=== PATIENT | female | born 1985 ===

== ENCOUNTER 2016-12-04 09:02 | Emergency (ER) | payer OTHER ==
[2016-12-04 09:12] VITALS: BP 106/76; PULSE 76; RESP 19; TEMP 98.8; O2SAT 100
[2016-12-04] MEDS ORDERED: Vancomycin 1 g Inj ONE (09:24)
--- NOTE | 2016-12-04 09:26 | ED PDOC ---
HPI: General Adult Time Seen by Provider: 12/04/16 09:07 Chief Complaint (Provider): right breast swelling History Per: Patient History/Exam Limitations: no limitations Additional Complaint(s): 31yo female comes in complaining of right breast swelling, erythema and pain for 2 weeks. No discharge or fever. Past Medical History Reviewed: Historical Data, Nursing Documentation, Vital Signs Vital Signs: Last Vital Signs Temp 98.8 F 12/04/16 09:10 Pulse 76 12/04/16 09:10 Resp 19 12/04/16 09:10 BP 106/76 12/04/16 09:10 Pulse Ox 100 12/04/16 09:33 - Medical History PMH: No Chronic Diseases - Surgical History Surgical History: No Surg Hx - Family History Family History: States: Unknown Family Hx - Social History Drugs: Denies - Home Medications Home Medications: Ambulatory Orders Medication Instructions Recorded Clindamycin [Cleocin] 300 mg PO TID #30 cap 12/04/16 Naproxen [Naprosyn] 500 mg PO Q12H #20 tab 12/04/16 - Allergies Allergies/Adverse Reactions: Allergies Allergy/AdvReac Type Severity Reaction Status Date / Time No Known Allergies Allergy Verified 12/04/16 10:53 Review of Systems ROS Statement: Except As Marked, All Systems Reviewed And Found Negative Constitutional: Negative for: Fever Skin: Positive for: Other (Breast swelling, erythema) Physical Exam - Reviewed Nursing Documentation Reviewed: Yes Vital Signs Reviewed: Yes - Physical Exam Appears: Positive for: Well, Non-toxic, No Acute Distress Head Exam: Positive for: ATRAUMATIC, NORMAL INSPECTION, NORMOCEPHALIC Cardiovascular/Chest: Positive for: Other (Right breast erythema, lower half swelling inferior portion areaola no drainage, induration lower half of breast. no fluctuance. no axillary lymphadenopathy. ) - Laboratory Results Result Diagrams: 12/04/16 09:52 12/04/16 09:52 - ECG O2 Sat by Pulse Oximetry: 100 (RA) Pulse Ox Interpretation: Normal Medical Decision Making Medical Decision Makin Rule out abscess. US Right breast, VBG shock panel, CBC, CMP, Vancomycin ordered. Blood culture obtained prior to initiation of antibiotics. Disposition - Clinical Impression Clinical Impression: Cellulitis of breast - Patient ED Disposition Is Patient to be Admitted: No Counseled Patient/Family Regarding: Studies Performed, Diagnosis, Need For Followup, Rx Given - Disposition Referrals: [facility] [Outside] Disposition: Routine/Home Disposition Time: 11:58 Condition: FAIR Additional Instructions: Braden Izquierdo en la clinica Prescriptions: Clindamycin [Cleocin] 300 mg PO TID #30 cap Naproxen [Naprosyn] 500 mg PO Q12H #20 tab Instructions: Cellulitis (ED) Print Language: CAMEROONIAN Additional Comments - Additional Comments Additional Comments: Scribe Attestation: Documented by Renny Crouch acting as a scribe for Vikas Dc MD. Provider Scribe Attestation: All medical record entries made by the Scribe were at my direction and personally dictated by me. I have reviewed the chart and agree that the record accurately reflects my personal performance of the history, physical exam, medical decision making, and the department course for this patient. I have also personally directed, reviewed, and agree with the discharge instructions and disposition.
[2016-12-04 09:56] LABS: BASO % 0.4 % (0.0-2.0); EOS # 0.3 K/uL (0.0-0.7); EOS % 2.7 % (0.0-4.0); HEMATOCRIT 35.7 % (34.0-47.0); LYMPH # 1.9 K/uL (1.0-4.3); LYMPH % 17.2 % (20.0-40.0); MEAN CELL VOLUME 89.2 fl (81.0-99.0); MEAN CORPUSCULAR HEMOGLOBIN 29.9 pg (27.0-31.0); MEAN CORPUSCULAR HGB CONC 33.5 g/dL (33.0-37.0); MEAN PLATELET VOLUME 8.7 fl (7.2-11.7); MONO % 8.6 % (0.0-10.0); NEUT # 7.9 K/uL (1.8-7.0); NEUT % 71.1 % (50.0-75.0); RED CELL DISTRIBUTION WIDTH 12.8 % (11.5-14.5); WHITE BLOOD COUNT 11.1 K/uL (4.8-10.8)
[2016-12-04 10:00] LABS: VENOUS BLOOD GAS BASE EXCESS -1.1 mmol/L (0.0-2.0); VENOUS BLOOD GAS PCO2 42 mmHg (40-60); VENOUS BLOOD PH 7.37 (7.32-7.43)
[2016-12-04 10:09] LABS: ALKALINE PHOSPHATASE 108 U/L (38-126); ALT/SGPT 33 U/L (9-52); AST/SGOT 23 U/L (14-36); BILIRUBIN,TOTAL 0.2 mg/dl (0.2-1.3); BLOOD UREA NITROGEN 12 mg/dl (7-17); CALCIUM 9.3 mg/dL (8.4-10.2); CARBON DIOXIDE 21 mmol/L (22-30); CHLORIDE 106 mmol/L (98-107); GFR AFRICAN-AMERICAN > 60; GLUCOSE,RANDOM 99 mg/dL (65-105); SODIUM 143 mmol/l (132-148); TOTAL PROTEIN 8.4 G/DL (6.3-8.2)
[2016-12-04] MEDS ORDERED: Clindamycin 600 MG in Sodium Chloride 0.9% 100 ML IVPB ONE (11:06)
--- NOTE | 2016-12-04 11:36 | US ---
PROCEDURE: Right breast ultrasound examination HISTORY: r/o abscess COMPARISON: Not available TECHNIQUE: Targeted ultrasound examination right breast 3 to 8 o'clock axis FINDINGS: Ultrasound examination performed in the area of erythema and mastodynia demonstrates diffuse subcutaneous edema without evidence of mass or abscess. This most likely indicates cellulitis but is a nonspecific finding and should be correlated with clinical findings. There is no additional abnormality demonstrated. IMPRESSION: No sonographic evidence of abscess. Possible cellulitis.
== END 2016-12-04 13:25 | disposition home or self-care (01) ==
LOC: H.ER 09:02
DX: L03.313 Cellulitis of chest wall (principal); N64.4 Mastodynia

== ENCOUNTER 2016-12-06 15:33 | Inpatient (IN) | payer OTHER ==
[2016-12-06] MEDS ORDERED: DiphenhydrAMINE 50 mg/ml Inj IM STA (16:07)
--- NOTE | 2016-12-06 16:12 | ED PDOC ---
HPI: Allergic Reaction Time Seen by Provider: 12/06/16 15:59 Chief Complaint (Nursing): Allergic Reaction Chief Complaint (Provider): Allergic Reaction History Per: Patient History/Exam Limitations: no limitations Onset/Duration Of Symptoms: Hrs (last night) Current Symptoms Are (Timing): Still Present Context: Other (allergic reaction to medication) Possible Cause: Medication Associated Symptoms: Skin Rash (diffuse, pruritic sensation), Itching. denies: Dyspnea, Trouble Swallowing, Dizziness, Other (fever, chills, or weakness) Home/EMS Treatment: None Severity: Moderate Additional Complaint(s): Nory Lancaster is a 31 year old female, with no pertinent past medical history, who presents to the emergency department for the evaluation of an allergic reaction to a medication, that the patient began experiencing last night. Patient was prescribed Clindamycin on Sunday for cellulitis and was recently seen in this ER, in which she had blood work done, inclusive of a blood culture , which came back negative. Patient reports taking 5 doses of Clindamycin since being Rx, last night she developed a diffuse, pruritic rash. Lesion on right breast remains with pain. Denies difficulty with speaking, swallowing, breathing, weakness, dizziness, fever, chills, or a history of infections to her skin in the past. Patient reports taking no medications for her symptoms prior to arrival and denies a prior history of allergies. Symptoms on breast began approx 14 days ago. PMD: none specified Past Medical History Reviewed: Historical Data, Nursing Documentation, Vital Signs Vital Signs: Last Vital Signs Temp 98.5 F 12/06/16 15:42 Pulse 80 12/06/16 15:42 Resp 18 12/06/16 15:42 BP 105/66 12/06/16 15:42 Pulse Ox 100 12/06/16 15:42 - Medical History PMH: No Chronic Diseases Denies: Chronic Kidney Disease - Surgical History Surgical History: No Surg Hx - Family History Family History: States: No Known Family Hx - Home Medications Home Medications: Ambulatory Orders Medication Instructions Recorded Clindamycin [Cleocin] 300 mg PO TID #30 cap 12/04/16 Naproxen [Naprosyn] 500 mg PO Q12H #20 tab 12/04/16 - Allergies Allergies/Adverse Reactions: Allergies Allergy/AdvReac Type Severity Reaction Status Date / Time No Known Allergies Allergy Verified 12/04/16 10:53 Review of Systems ROS Statement: Except As Marked, All Systems Reviewed And Found Negative Constitutional: Negative for: Fever, Chills ENT: Negative for: Other (difficulty swallowing) Respiratory: Negative for: Shortness of Breath, Other (difficulty speaking) Skin: Positive for: Rash (diffuse, pruritic) Neurological: Negative for: Weakness, Dizziness Physical Exam - Reviewed Nursing Documentation Reviewed: Yes Vital Signs Reviewed: Yes - Physical Exam Appears: Positive for: Non-toxic, No Acute Distress Head Exam: Positive for: ATRAUMATIC, NORMOCEPHALIC Skin: Positive for: Warm, Dry, Rash (diffuse macular rash to back, trunk, and arms; non-petechial and w/o findings to mucous membranes or b/l palms) Eye Exam: Positive for: Normal appearance, EOMI ENT: Positive for: Normal ENT Inspection. Negative for: Pharyngeal Erythema, Tonsillar Exudate Neck: Positive for: Normal, Painless ROM Cardiovascular/Chest: Positive for: Regular Rate, Rhythm, Other (R breast + fluctuance and erythema w induration medial inner breast tracking outwards). Negative for: Murmur Respiratory: Positive for: Normal Breath Sounds. Negative for: Respiratory Distress Gastrointestinal/Abdominal: Positive for: Normal Exam, Soft. Negative for: Tenderness Extremity: Positive for: Normal ROM. Negative for: Tenderness Neurologic/Psych: Positive for: Alert, Oriented. Negative for: Motor/Sensory Deficits - Laboratory Results Result Diagrams: 12/06/16 18:00 12/06/16 18:00 - ECG O2 Sat by Pulse Oximetry: 100 (RA) Pulse Ox Interpretation: Normal Disposition - Clinical Impression Clinical Impression: Cellulitis of breast, Allergic reaction, Leukocytosis - Patient ED Disposition Is Patient to be Admitted: Yes Counseled Patient/Family Regarding: Studies Performed - Disposition Disposition Time: 18:45 Condition: STABLE Patient Signed Over To: Florina Ely Handoff Comments: Obs MS Medical Decision Making Medical Decision Makin:59 Initial Impression: Allergic reaction to medication Initial Plan: * Benadryl 25 mg IM * predniSONE 40 mg PO * Reevaluation allergic reaction improved in ED s/p benadryl and prednisone but cellulitis does not appear to be responding to PO Abx- now elevating WBC, fluctuance on exam, admit Dr Ely hospitalist obtain breast US likely surg consult based on results US. Scribe Attestation: Documented by Renny Montes, acting as a scribe for Mc Zuñiga III, MD. Provider Scribe Attestation: All medical record entries made by the Scribe were at my direction and personally dictated by me. I have reviewed the chart and agree that the record accurately reflects my personal performance of the history, physical exam, medical decision making, and the department course for this patient. I have also personally directed, reviewed, and agree with the discharge instructions and disposition.
[2016-12-06] MEDS ORDERED: DiphenhydrAMINE 50 mg/ml Inj ONE (16:22)
[2016-12-06] MEDS ORDERED: Piperacillin/Tazobact 3.375 GM in Sodium Chloride 0.9% 100 ML IVPB STA (17:47)
[2016-12-06] MEDS ORDERED: Piperacillin/Tazobact 3.375 gm Inj IVPB ONE ×2 (18:02→19:49)
[2016-12-06] MEDS ORDERED: Vancomycin 1 g Inj ONE (18:02)
[2016-12-06 18:13] LABS: BASO % 0.2 % (0.0-2.0); EOS # 0.3 K/uL (0.0-0.7); EOS % 1.9 % (0.0-4.0); HEMATOCRIT 36.1 % (34.0-47.0); LYMPH % 12.6 % (20.0-40.0); MEAN CELL VOLUME 90.4 fl (81.0-99.0); MEAN CORPUSCULAR HEMOGLOBIN 29.1 pg (27.0-31.0); MEAN CORPUSCULAR HGB CONC 32.2 g/dL (33.0-37.0); MEAN PLATELET VOLUME 8.6 fl (7.2-11.7); MONO # 0.7 K/uL (0.0-0.8); MONO % 4.7 % (0.0-10.0); NEUT # 12.7 K/uL (1.8-7.0); NEUT % 80.6 % (50.0-75.0); RED CELL DISTRIBUTION WIDTH 12.7 % (11.5-14.5); WHITE BLOOD COUNT 15.8 K/uL (4.8-10.8)
[2016-12-06 18:45] LABS: BLOOD UREA NITROGEN 17 mg/dl (7-17); CALCIUM 9.3 mg/dL (8.4-10.2); CARBON DIOXIDE 20 mmol/L (22-30); CHLORIDE 107 mmol/L (98-107); GFR AFRICAN-AMERICAN > 60; GLUCOSE,RANDOM 101 mg/dL (65-105); POTASSIUM 3.9 MMOL/L (3.6-5.0); SODIUM 141 mmol/l (132-148)
--- NOTE | 2016-12-06 20:24 | CP.PCM.CON ---
History of Present Illness - History of Present Illness History of Present Illness: General Surgery - Dr. Montoya 31 F w/ no PMH who presented to ED today with a diffuse rash from Clindamycin which she was prescribed 2 days prior for breast cellulitis. Pt states that she noticed some mild pain and swelling of the R breast beginning 2 weeks ago which became progressively worse. She went to the ED on 12/04 and had U/S done which showed only cellulitis, was discharged with PO Clindamycin. Pt states that the pain and swelling has gotten worse over the past 2 days. She denies any Fevers, Chills, SOb/Chest pain, N/V. Pt states she's never had anything like this before. She is not currently or recently . PMH/PSH: Denies Review of Systems - Review of Systems All systems: reviewed and no additional remarkable complaints except (as per HPI ) Past Patient History - Past Social History Smoking Status: Never Smoked - CARDIAC Hx Cardiac Disorders: No - PULMONARY Hx Respiratory Disorders: No - NEUROLOGICAL Hx Neurological Disorder: No - HEENT Hx HEENT Problems: No - RENAL Hx Chronic Kidney Disease: No - ENDOCRINE/METABOLIC Hx Endocrine Disorders: No - HEMATOLOGICAL/ONCOLOGICAL Hx Blood Disorders: No - INTEGUMENTARY Hx Dermatological Problems: No - MUSCULOSKELETAL/RHEUMATOLOGICAL Hx Musculoskeletal Disorders: No - GASTROINTESTINAL Hx Gastrointestinal Disorders: No - GENITOURINARY/GYNECOLOGICAL Hx Genitourinary Disorders: No - PSYCHIATRIC Hx Psychophysiologic Disorder: No Hx Substance Use: No - SURGICAL HISTORY Hx Surgeries: No - ANESTHESIA Hx Anesthesia: No Meds Allergies/Adverse Reactions: Allergies Allergy/AdvReac Type Severity Reaction Status Date / Time No Known Allergies Allergy Verified 12/04/16 10:53 Physical Exam - Constitutional Appears: No Acute Distress - Head Exam Head Exam: ATRAUMATIC, NORMAL INSPECTION, NORMOCEPHALIC - Eye Exam Eye Exam: Normal appearance - ENT Exam ENT Exam: Mucous Membranes Moist - Respiratory Exam Respiratory Exam: NORMAL BREATHING PATTERN. absent: Respiratory Distress - Cardiovascular Exam Cardiovascular Exam: REGULAR RHYTHM - Neurological Exam Neurological exam: Alert, Oriented x3 - Psychiatric Exam Psychiatric exam: Normal Affect, Normal Mood - Skin Skin Exam: Dry, Intact Additional comments: R breast with approx 3x3xcm area of erythema with surrounding induration and central fluctuance located at the 5:00 position Results - Vital Signs Recent Vital Signs: Last Vital Signs Temp 98.5 F 12/06/16 15:42 Pulse 80 12/06/16 15:42 Resp 18 12/06/16 15:42 BP 105/66 12/06/16 15:42 Pulse Ox 100 12/06/16 19:24 - Labs Result Diagrams: 12/06/16 18:00 12/06/16 18:00 Assessment & Plan - Assessment and Plan (Free Text) Assessment: 31 yo F w/ R breast cellulitis/poss. abscess -Repeat U/S of the breast -IV Abx -Pain control -Warm compresses -NPO after midnight for poss. I&D tomorrow DW Dr. Jan Ortega PGY2
--- NOTE | 2016-12-06 21:37 | US ---
EXAM: US Right Breast Limited CLINICAL HISTORY: 31 years old, female; Signs and symptoms; Other: Rt breast cellulitis; Additional info: R breast cellulitis R/O abscess repeat TECHNIQUE: Static sonographic images of the right breast with image documentation utilizing a linear transducer. COMPARISON: Prior report 12/04/2016 FINDINGS: Soft tissues: Amorphous hypoechoic collection with mobile internal debris at 3:00 to 5:00 position, roughly 5.2 x 1.4 cm. Mild peripheral vascularity. Extensive edema within surrounding soft tissues. IMPRESSION: 1. Findings compatible with abscess. Recommend followup following treatment/resolution to exclude underlying pathology. 2. Incidental/non-acute findings are described above.
--- NOTE | 2016-12-06 22:22 | CP.PCM.HP ---
History of Present Illness - History of Present Illness History of Present Illness: Chief complaint: Right breast Cellulitis HPI: Pt is a 31 year old Egyptian speaking female who comes in with no significant pmhx other than a progressive right breast cellulitis which on ultrasound showed no abscess and was treated with clindamycin by mouth with worsening pain/cellulitis and a diffuse rash secondary to the clindamycin. Pt allergic reaction to medication improved but the pain has been getting progressively worse. The white count has been elevated at 15 and she has taken a total of 5 doses of Clindamycin since being. Pt denies any other symptoms or complaints. Symptoms on breast began approx 14 days ago. PMD: none specified Last Vital Signs Temp 98.5 F 12/06/16 15:42 Pulse 80 12/06/16 15:42 Resp 18 12/06/16 15:42 BP 105/66 12/06/16 15:42 Pulse Ox 100 12/06/16 15:42 PMH: No Chronic Diseases Surgical History: No Surg Hx Family History: States: No Known Family Hx Home Medications: Ambulatory Orders Medication Instructions Recorded Clindamycin [Cleocin] 300 mg PO TID #30 cap 12/04/16 Naproxen [Naprosyn] 500 mg PO Q12H #20 tab 12/04/16 Allergies/Adverse Reactions: Allergies Allergy/AdvReac Type Severity Reaction Status Date / Time No Known Allergies Allergy Verified 12/04/16 10:53 ROS- 14 points all negative except for breast pain - ECG O2 Sat by Pulse Oximetry: 100 (RA) Pulse Ox Interpretation: Normal Present on Admission - Present on Admission Any Indicators Present on Admission: No History of DVT/PE: No History of Uncontrolled Diabetes: No Urinary Catheter: No Decubitus Ulcer Present: No Review of Systems - Constitutional Constitutional: absent: As Per HPI, Anorexia, Chills, Daytime Sleepiness, Excessive Sweating, Fatigue, Fever, Frequent Falls, Headache, Increased Appetite , Lethargy, Malaise, Night Sweats, Snoring, Sleep Apnea, Weight Gain, Weight Loss, Weakness, Other - EENT Eyes: absent: As Per HPI, Blind Spots, Blurred Vision, Change in Vision, Decreased Night Vision, Diplopia, Discharge, Dry Eye, Exophthalmos, Floaters, Irritation, Itchy Eyes, Loss of Peripheral Vision, Pain, Photophobia, Requires Corrective Lenses, Sees Flashes, Spots in Vision, Tunnel Vision, Other Visual Disturbances, Loss of Vision, Other Ears: absent: As Per HPI, Decreased Hearing, Ear Discharge, Ear Pain, Tinnitus, Abnormal Hearing, Disequilibrium, Dizziness, Other Nose/Mouth/Throat: absent: As Per HPI, Epistaxis, Nasal Congestion, Nasal Discharge, Nasal Obstruction, Nasal Trauma, Nose Pain, Post Nasal Drip, Sinus Pain, Sinus Pressure, Bleeding Gums, Change in Voice, Dental Pain, Dry Mouth, Dysphagia, Halitosis, Hoarsness, Lip Swelling, Mouth Lesions, Mouth Pain, Odynophagia, Sore Throat, Throat Swelling, Tongue Swelling, Facial Pain, Neck Pain, Neck Mass, Other - Breasts Breasts: Mass, Pain, Nipple Inversion, Swelling - Cardiovascular Cardiovascular: absent: As Per HPI, Acrocyanosis, Chest Pain, Chest Pain at Rest , Chest Pain with Activity, Claudication, Diaphoresis, Dyspnea, Dyspnea on Exertion, Edema, Irregular Heart Rhythm, Pain Radiating to Arm/Neck/Jaw, Leg Edema, Leg Ulcers, Lightheadedness, Orthopnea, Palpitations, Paroxysmal Nocturnal Dyspnea, Pedal Edema, Radiating Pain, Rapid Heart Rate, Slow Heart Rate, Syncope, Other - Respiratory Respiratory: absent: As Per HPI, Cough, Dyspnea, Hemoptysis, Dyspnea on Exertion , Wheezing, Snoring, Stridor, Pain on Inspiration, Chest Congestion, Excessive Mucous Production, Change in Mucous Color, Pain with Coughing, Other - Gastrointestinal Gastrointestinal: absent: As Per HPI, Abdominal Pain, Belching, Bloating, Change in Bowel Habits, Change in Stool Character, Coffee Ground Emesis, Constipation, Cramping, Diarrhea, Dyspepsia, Dysphagia, Early Satiety, Excessive Flatus, Fecal Incontinence, Heartburn, Hematemesis, Hematochezia, Loose Stools, Melena, Nausea, Odynophagia, Temesmus, Vomiting, Other - Genitourinary Genitourinary: absent: As Per HPI, Change in Urinary Stream, Difficulty Urinating, Dysuria, Flank Pain, Hematuria, Pyuria, Nocturia, Urinary Incontinence, Urinary Frequency, Urinary Hesitance, Urinary Urgency, Voiding Freq/Small Amts, Freq UTI, Hx Renal/Bladder Calculi, Hx /Renal Surgery, Bladder Distension, Other - Menstruation Menstruation: absent: As Per HPI, Amenorrhea, Amenorrhea/ Control, Currently Menstual, Cycle <21 Days, Cycle >35 Days, Cycle Variable, Menses 1-7 Days, Menses >/= 8 Days, Menses Variable, Cycle > 4 Weeks Between, No Menses for 6 Months, Heavy Menses, Light Menses, Normal Menses, Spotting Between Cycles , S/P Hysterectomy, Menopausal, Post Menopausal, Premenarche, Abnormal Vaginal Bleeding, Dysmenorrhea, Other - Musculoskeletal Musculoskeletal: absent: As Per HPI, Abnormal Gait, Arthralgias, Atrophy, Back Pain, Deformity, Joint Swelling, Limited Range of Motion, Loss of Height, Muscle Cramps, Muscle Weakness, Myalgias, Neck Pain, Numbness, Radiating Pain into Limb, Stiffness, Tingling, Other - Integumentary Integumentary: Skin Pain, Swelling - Neurological Neurological: absent: As Per HPI, Abnormal Gait, Abnormal Hearing, Abnormal Movements, Abnormal Speech, Behavioral Changes, Burning Sensations, Confusion, Convulsions, Disequilibrium, Dizziness, Numbness, Focal Weakness, Frequent Falls , Headaches, Lack of Coordination, Loss of Vision, Memory Loss, Paresthesias, Radicular Pain, Restless Legs, Sensory Deficit, Syncope, Tingling, Tremor, Vertigo, Weakness, Other Visual Disturbances, Other - Psychiatric Psychiatric: absent: As Per HPI, Abnormal Sleep Pattern, Anhedonia, Anxiety, Auditory Hallucinations, Behavioral Changes, Change in Appetite, Change in Libido, Confusion, Depression, Difficulty Concentrating, Hallucinations, Homicidal Ideation, Hopelessness, Irritability, Memory Loss, Mood Swings, Panic Attacks, Paranoia, Suicidal Ideation, Visual Hallucinations, Tactile Hallucinations, Other - Endocrine Endocrine: absent: As Per HPI, Change in Body Appearance, Change in Libido, Cold Intolorance, Deepening of Voice, Excessive Sweating, Fatigue, Flushing, Heat Intolorance, Increase in Ring/Shoe/Hat Size, Palpitations, Polydipsia, Polyphagia, Polyuria, Other - Hematologic/Lymphatic Hematologic: absent: As Per HPI, Easy Bleeding, Easy Bruising, Lymphadenopathy, Other Past Patient History - Tetanus Immunizations Tetanus Immunization: Unknown - Past Medical History & Family History Past Medical History?: No - Past Social History Smoking Status: Never Smoked Chewing Tobacco Use: No Cigar Use: No - CARDIAC Hx Cardiac Disorders: No - PULMONARY Hx Respiratory Disorders: No - NEUROLOGICAL Hx Neurological Disorder: No - HEENT Hx HEENT Problems: No - RENAL Hx Chronic Kidney Disease: No - ENDOCRINE/METABOLIC Hx Endocrine Disorders: No - HEMATOLOGICAL/ONCOLOGICAL Hx Blood Disorders: No - INTEGUMENTARY Hx Dermatological Problems: No - MUSCULOSKELETAL/RHEUMATOLOGICAL Hx Musculoskeletal Disorders: No - GASTROINTESTINAL Hx Gastrointestinal Disorders: No - GENITOURINARY/GYNECOLOGICAL Hx Genitourinary Disorders: No - PSYCHIATRIC Hx Psychophysiologic Disorder: No Hx Substance Use: No - SURGICAL HISTORY Hx Surgeries: No - ANESTHESIA Hx Anesthesia: No Meds Allergies/Adverse Reactions: Allergies Allergy/AdvReac Type Severity Reaction Status Date / Time No Known Allergies Allergy Verified 12/04/16 10:53 Physical Exam - Head Exam Head Exam: ATRAUMATIC, NORMAL INSPECTION, NORMOCEPHALIC - Eye Exam Eye Exam: EOMI, Normal appearance, PERRL Pupil Exam: NORMAL ACCOMODATION - ENT Exam ENT Exam: Mucous Membranes Moist, Normal Exam - Neck Exam Neck exam: Positive for: Normal Inspection - Respiratory Exam Respiratory Exam: Clear to Auscultation Bilateral, NORMAL BREATHING PATTERN - Cardiovascular Exam Cardiovascular Exam: REGULAR RHYTHM - GI/Abdominal Exam GI & Abdominal Exam: Normal Bowel Sounds - Back Exam Back exam: NORMAL INSPECTION - Neurological Exam Neurological exam: CN II-XII Intact, Normal Gait, Oriented x3, Reflexes Normal - Psychiatric Exam Psychiatric exam: Normal Mood - Additional Findings Additional findings: breast looks indurated with swelling and painful to the touch. Results - Vital Signs Recent Vital Signs: Last Vital Signs Temp 97.8 F 12/06/16 22:15 Pulse 78 12/06/16 22:15 Resp 18 12/06/16 22:15 BP 118/65 12/06/16 22:15 Pulse Ox 100 12/06/16 22:15 - Labs Result Diagrams: 12/06/16 18:00 05/10/17 18:00 Assessment & Plan - Assessment and Plan (Free Text) Assessment: Pt is a 31 yo irish speaking female with breast cellulitis with no improvement in symptoms. Plan: Admit to Med surg 1) breast cellulitis- no abscess on prior ultrasound - will get vanco and rocephin for now iv - tylenol for breast pain - Surgery consult appreciated with Dr. Montoya - cultures pending - repeat ultrasound pending 2) gi and dvt prophylaxis - Date & Time Date: 12/06/16 Time: 22:31
[2016-12-06] MEDS ORDERED: Oxycodone/Acetaminophen 5/325 mg Tab PO PRN (22:36)
[2016-12-06] MEDS: Sodium Chloride 0.9% 1,000 ML IV SCH (23:11)
[2016-12-07 00:03] VITALS: BMI 19.5
[2016-12-07 06:59] LABS: BASO % 0.2 % (0.0-2.0); EOS % 0.3 % (0.0-4.0); HEMATOCRIT 32.5 % (34.0-47.0); LYMPH # 2.2 K/uL (1.0-4.3); LYMPH % 18.1 % (20.0-40.0); MEAN CELL VOLUME 89.7 fl (81.0-99.0); MEAN CORPUSCULAR HEMOGLOBIN 29.5 pg (27.0-31.0); MEAN CORPUSCULAR HGB CONC 32.9 g/dL (33.0-37.0); MEAN PLATELET VOLUME 8.8 fl (7.2-11.7); MONO # 0.9 K/uL (0.0-0.8); MONO % 7.7 % (0.0-10.0); NEUT # 8.8 K/uL (1.8-7.0); NEUT % 73.7 % (50.0-75.0); RED CELL DISTRIBUTION WIDTH 12.7 % (11.5-14.5); WHITE BLOOD COUNT 11.9 K/uL (4.8-10.8)
[2016-12-07 07:11] LABS: BLOOD UREA NITROGEN 14 mg/dl (7-17); CALCIUM 8.6 mg/dL (8.4-10.2); CARBON DIOXIDE 21 mmol/L (22-30); CHLORIDE 111 mmol/L (98-107); GFR AFRICAN-AMERICAN > 60; GLUCOSE,RANDOM 101 mg/dL (65-105); POTASSIUM 3.8 MMOL/L (3.6-5.0); SODIUM 142 mmol/l (132-148)
[2016-12-07] MEDS ORDERED: Enoxaparin 40 mg Syringe SC SCH (09:00)
[2016-12-07] MEDS: Sodium Chloride 0.9% 1,000 ML IV SCH ×2 (10:24→20:40)
--- NOTE | 2016-12-07 14:53 | CP.PCM.PN ---
Subjective - Date & Time of Evaluation Date of Evaluation: 12/07/16 Time of Evaluation: 11:20 - Subjective Subjective: Pt seen and examined. Pain on right breast tolerable. Objective - Vital Signs/Intake and Output Vital Signs (last 24 hours): Temp Pulse Resp BP Pulse Ox 98.8 F 80 18 90/59 L 98 12/07/16 09:00 12/07/16 09:00 12/07/16 09:00 12/07/16 09:00 12/07/16 09:00 - Medications Medications: Current Medications Acetaminophen (Tylenol 325mg Tab) 650 mg PO Q6 PRN PRN Reason: Pain, Mild (1-3) Ceftriaxone Sodium 1 gm/ (Sodium Chloride) 100 mls @ 100 mls/hr IVPB BID [facility] Last Admin: 12/07/16 10:19 Dose: 100 mls/hr Vancomycin HCl 1 gm/ Sodium (Chloride) 250 mls @ 166.667 mls/hr IVPB DAILY [facility] Last Admin: 12/07/16 10:20 Dose: 166.667 mls/hr Sodium Chloride (Sodium Chloride 0.9%) 1,000 mls @ 100 mls/hr IV .Q10H [facility] Stop: 12/07/16 22:47 Last Admin: 12/07/16 10:24 Dose: 100 mls/hr Oxycodone/Acetaminophen (Percocet 5/325 Mg Tab) 1 tab PO Q6 PRN PRN Reason: Pain, severe (8-10) Stop: 12/09/16 22:37 - Labs Labs: 12/07/16 06:15 12/07/16 06:15 - Constitutional Appears: No Acute Distress - Head Exam Head Exam: ATRAUMATIC - Eye Exam Eye Exam: absent: Scleral icterus - ENT Exam ENT Exam: Mucous Membranes Moist - Neck Exam Neck Exam: absent: Meningismus - Respiratory Exam Respiratory Exam: absent: Rhonchi, Wheezes, Respiratory Distress - Cardiovascular Exam Cardiovascular Exam: REGULAR RHYTHM, +S1, +S2 - GI/Abdominal Exam GI & Abdominal Exam: Soft. absent: Tenderness - Rectal Exam Rectal Exam: Deferred - Extremities Exam Extremities Exam: absent: Pedal Edema - Back Exam Back Exam: NORMAL INSPECTION - Neurological Exam Neurological Exam: Alert, Oriented x3 - Psychiatric Exam Psychiatric exam: Normal Affect - Skin Skin Exam: Erythema (swelling with erythema and tenderness on right breast, lower outer quadrant) Assessment and Plan (1) Cellulitis of breast Status: Acute - Assessment and Plan (Free Text) Assessment: 31 yo female came in with pain and swelling on the right breast. 1. Cellulitis, right breast improving with pain becoming more tolerable on Vanco and Rocephin for I&D today blood culture: no growth 2. DVT prophylaxis Lovenox on hold since pt is for I&D today.
[2016-12-07] MEDS ORDERED: Midazolam 2 MG/2 ML VIAL ONE (18:13)
[2016-12-07] MEDS ORDERED: Propofol 10 mg/ml Inj (20 ML) ONE (18:13)
[2016-12-07] MEDS ORDERED: Sevoflurane - Inhalation Anesthetic Liq (250 ml) ONE (18:19)
[2016-12-07] MEDS ORDERED: Lactated Ringer's 1,000 ML IV ONE (18:30)
[2016-12-07] MEDS ORDERED: HYDROmorphone 0.5 mg/0.5 ml ISec IVP PRN (18:48)
--- NOTE | 2016-12-07 18:50 | PCM.SURG1 ---
Surgeon's Initial Post Op Note - Surgeon's Notes Surgeon: Dr. Montoya Family Support Worker: Dr. Weiss PGY-1 Type of Anesthesia: General LMA Pre-Operative Diagnosis: Right breast abscess Operative Findings: See operative note Post-Operative Diagnosis: Right breast abscess Operation Performed: Inscision and drainage of Right breast abscess Specimen/Specimens Removed: Purulent exhudate Estimated Blood Loss: EBL {In ML}: 10 Blood Products Given: N/A Drains Used: No Drains Post-Op Condition: Good Date of Surgery/Procedure: 12/07/16 Time of Surgery/Procedure: 18:50
[2016-12-07 23:45] VITALS: RESP 16
[2016-12-08 07:50] VITALS: BP 103/69; PULSE 73; TEMP 97.6; O2SAT 100
--- NOTE | 2016-12-08 08:03 | CP.PCM.PN ---
Subjective - Date & Time of Evaluation Date of Evaluation: 12/08/16 Time of Evaluation: 08:00 - Subjective Subjective: General Surgery - Dr. Montoya Pt S&E. NAEO. Pt doing well post-op. She denies any pain at this time. She is tolerating regular diet and ambulating. R breast dressing w/ slight serosanguinous drainage, dry and intact. Objective - Vital Signs/Intake and Output Vital Signs (last 24 hours): Temp Pulse Resp BP Pulse Ox 97.6 F 73 16 103/69 100 12/08/16 07:49 12/08/16 07:49 12/08/16 07:49 12/08/16 07:49 12/08/16 07:49 Intake and Output: 12/08/16 12/08/16 06:59 18:59 Intake Total 100 Balance 100 - Medications Medications: Current Medications Acetaminophen (Tylenol 325mg Tab) 650 mg PO Q6 PRN PRN Reason: Pain, Mild (1-3) Ceftriaxone Sodium 1 gm/ (Sodium Chloride) 100 mls @ 100 mls/hr IVPB BID [facility] Last Admin: 12/07/16 16:02 Dose: 100 mls/hr Vancomycin HCl 1 gm/ Sodium (Chloride) 250 mls @ 166.667 mls/hr IVPB DAILY [facility] Last Admin: 12/07/16 10:20 Dose: 166.667 mls/hr Oxycodone/Acetaminophen (Percocet 5/325 Mg Tab) 1 tab PO Q6 PRN PRN Reason: Pain, severe (8-10) Stop: 12/09/16 22:37 - Constitutional Appears: No Acute Distress - Head Exam Head Exam: ATRAUMATIC, NORMOCEPHALIC - Respiratory Exam Respiratory Exam: NORMAL BREATHING PATTERN. absent: Respiratory Distress - Cardiovascular Exam Cardiovascular Exam: REGULAR RHYTHM - Neurological Exam Neurological Exam: Alert, Oriented x3 - Psychiatric Exam Psychiatric exam: Normal Affect, Normal Mood - Skin Skin Exam: Dry, Intact Additional comments: R Breast dressing dry and intact Assessment and Plan - Assessment and Plan (Free Text) Assessment: 31 yo F w/ R breast abscess, s/p I&D POD #1 -Doing well post-operatively -Cont IV Abx -F/U Cultures -Encourage OOB -Packing change prior to D/C DW Dr Jan Alvarezald PGY2
--- NOTE | 2016-12-08 10:38 | OP ---
PROCEDURE DATE: 12/07/2016 SURGEON: Dr. Montoya. POT FISHER: Dr. Weiss. ANESTHESIA: General, Dr. Gordon. PREOPERATIVE DIAGNOSIS: Abscess, right breast. POSTOPERATIVE DIAGNOSIS: Abscess, right breast. PROCEDURE: Incision and drainage of right breast abscess. DESCRIPTION OF OPERATION: With the patient in the supine position under adequate general anesthesia, the right breast was prepped and draped in the usual sterile manner. The patient was noted to have erythema and swelling near the upper inner areolar border of the right breast. An incision was made into this area. Upon incising through the full thickness of skin there was noted to be drainage of t he large amount of white pus and cultures were taken. There were minimal loculations broken up with primarily a large single cavity and pus was expressed from both the subareolar and upper inner portio n of the breast with gentle pressure. The cavity was irrigated and plain gauze packing was placed fo llowed by a dry sterile dressing. The patient tolerated the procedure well and transferred to [facility] room in stable condition. Estimated blood loss for the procedure was 10 mL. Racquel Montoya MD cc: 58 TT: 12/08/2016 10:38:14 sonia
--- NOTE | 2016-12-08 12:53 | CP.PCM.DIS ---
Provider - Provider Date of Admission: 12/07/16 15:37 Attending physician: Florina Ely MD Consults: Dr Montoya Time Spent in preparation of Discharge (in minutes): 30 Diagnosis - Discharge Diagnosis (1) Cellulitis of breast Status: Acute Comment: improved. pain on right breast almost non-existent and very tolerable. Bactrim DS PO BID x 7 days. to follow with Dr Montoya in her office on 12/11/2016 Hospital Course - Lab Results Lab Results: Most Recent Lab Values WBC 11.9 K/uL (4.8-10.8) H 12/07/16 06:15 RBC 3.63 Mil/uL (3.80-5.20) L 12/07/16 06:15 Hgb 10.7 g/dL (12.0-16.0) L 12/07/16 06:15 Hct 32.5 % (34.0-47.0) L 12/07/16 06:15 MCV 89.7 fl (81.0-99.0) 12/07/16 06:15 MCH 29.5 pg (27.0-31.0) 12/07/16 06:15 MCHC 32.9 g/dL (33.0-37.0) L 12/07/16 06:15 RDW 12.7 % (11.5-14.5) 12/07/16 06:15 Plt Count 314 K/uL (130-400) 12/07/16 06:15 MPV 8.8 fl (7.2-11.7) 12/07/16 06:15 Neut % (Auto) 73.7 % (50.0-75.0) 12/07/16 06:15 Lymph % (Auto) 18.1 % (20.0-40.0) L 12/07/16 06:15 Morrow % (Auto) 7.7 % (0.0-10.0) 12/07/16 06:15 Eos % (Auto) 0.3 % (0.0-4.0) 12/07/16 06:15 Baso % (Auto) 0.2 % (0.0-2.0) 12/07/16 06:15 Neut # 8.8 K/uL (1.8-7.0) H 12/07/16 06:15 Lymph # 2.2 K/uL (1.0-4.3) 12/07/16 06:15 Morrow # 0.9 K/uL (0.0-0.8) H 12/07/16 06:15 Eos # 0.0 K/uL (0.0-0.7) 12/07/16 06:15 Baso # 0.0 K/uL (0.0-0.2) 12/07/16 06:15 Sodium 142 mmol/l (132-148) 12/07/16 06:15 Potassium 3.8 MMOL/L (3.6-5.0) 12/07/16 06:15 Chloride 111 mmol/L (98-107) H 12/07/16 06:15 Carbon Dioxide 21 mmol/L (22-30) L 12/07/16 06:15 Anion Gap 14 (10-20) 12/07/16 06:15 BUN 14 mg/dl (7-17) 12/07/16 06:15 Creatinine 0.5 mg/dL (0.7-1.2) L 12/07/16 06:15 Est GFR ( Amer) > 60 12/07/16 06:15 Est GFR (Non-Af Amer) > 60 12/07/16 06:15 Random Glucose 101 mg/dL (65-105) 12/07/16 06:15 Calcium 8.6 mg/dL (8.4-10.2) 12/07/16 06:15 - Hospital Course Hospital Course: 31 yo female with no significant PMH admitted because of painful swelling on the right breast. Patient was given Clindamycin but had to be stopped because of allergic reaction. The patient was started on IV Vanco and Rocephin then followed with I&D. The patient admitted marked relief and improvement post surgery. Pt was discharged in stable condition and advised to take Bactrim DS BID for 7 days. Pt will follow with Dr Montoya in her office this Sunday, 2016. Discharge Exam - Head Exam Head Exam: ATRAUMATIC, NORMOCEPHALIC - Eye Exam Eye Exam: Normal appearance - ENT Exam ENT Exam: Mucous Membranes Moist - Respiratory Exam Respiratory Exam: NORMAL BREATHING PATTERN. absent: Wheezes, Respiratory Distress - Cardiovascular Exam Cardiovascular Exam: REGULAR RHYTHM, +S1, +S2 - GI/Abdominal Exam GI & Abdominal Exam: Soft, Tenderness - Rectal Exam Rectal Exam: Deferred - Neurological Exam Neurological exam: Alert, Oriented x3 - Psychiatric Exam Psychiatric exam: Normal Affect - Skin Additional comments: dressing clear, dry and intact on right breast Discharge Plan - Discharge Medications Prescriptions: Sulfamethoxazole/Trimethoprim [Bactrim Ds Tablet] 1 each PO BID #14 tablet - Follow Up Plan Condition: STABLE Disposition: HOME/ ROUTINE Instructions: Cellulitis (DC) Additional Instructions: Please follow-up with Dr. Montoya on Sunday. Please call for appointment [phone]
== END 2016-12-08 15:05 | disposition home or self-care (01) | DRG 276 ==
LOC: H.ER 15:33 → H.ERHOLD 19:16 → H.MEDSURG1 21:01 → H.ERHOLD 21:39 → H.MEDSURG1 22:27 → OBSVTOIN 12-07 15:37 → H.MEDSURG1 12-07 18:17
PROVIDERS: ADMIT Hospitalist; ATTEND Hospitalist
PROC: 0H9T0ZZ Drainage of Right Breast, Open Approach (ICD-10-PCS; principal; 2016-12-07 16:15)
DX: N61.0 Mastitis without abscess (principal); D72.829 Elevated white blood cell count, unspecified

== ENCOUNTER 2016-12-11 13:14 | Emergency (ER) | payer OTHER ==
[2016-12-11 13:14] VITALS: BMI 19.5
[2016-12-11 13:29] VITALS: BP 120/71; PULSE 81; RESP 20; TEMP 98.8; O2SAT 100
--- NOTE | 2016-12-11 14:35 | ED PDOC ---
HPI: Wound Care - HPI Time Seen by Provider: 12/11/16 14:25 Chief Complaint (Nursing): Wound Check Chief Complaint (Provider): Wound Check History Per: Patient Exam Limitations: no limitations Onset/Duration Of Symptoms: Days (4x) Current Symptoms Are (Timing): Still Present Severity: Mild Additional Complaint(s): 31 year old female with no pertinent medical history presents to the ED for a wound check. She reports that she had an abscess on her right breast and 4x days ago she ad it I and D-ed by Dr. Montoya. She was supposed to follow up with him today but was unable to make appointment which is what prompted her visit to the ED today. She reports that she is being compliant her antibiotics and feels better. She denies having a fever or chills. PMD: Racquel Montoya MD Past Medical History Reviewed: Historical Data, Nursing Documentation, Vital Signs Vital Signs: Last Vital Signs Temp 98.8 F 12/11/16 13:26 Pulse 81 12/11/16 13:26 Resp 20 12/11/16 13:26 BP 120/71 12/11/16 13:26 Pulse Ox 100 12/11/16 13:26 - Medical History PMH: No Chronic Diseases Denies: HIV, Chronic Kidney Disease - Surgical History Surgical History: No Surg Hx - Family History Family History: States: Unknown Family Hx - Social History Alcohol: None Drugs: Denies - Home Medications Home Medications: Ambulatory Orders Medication Instructions Recorded Acetaminophen [Tylenol 325mg tab] 650 mg PO Q4 PRN tab 12/08/16 Sulfamethoxazole/Trimethoprim 1 each PO BID #14 tablet 12/08/16 [Bactrim Ds Tablet] - Allergies Allergies/Adverse Reactions: Allergies Allergy/AdvReac Type Severity Reaction Status Date / Time clindamycin Allergy RASH Verified 12/11/16 13:25 Review of Systems ROS Statement: Except As Marked, All Systems Reviewed And Found Negative Constitutional: Negative for: Fever, Chills Physical Exam - Reviewed Nursing Documentation Reviewed: Yes Vital Signs Reviewed: Yes - Physical Exam Appears: Positive for: Well, Non-toxic, No Acute Distress Head Exam: Positive for: ATRAUMATIC, NORMOCEPHALIC Skin: Positive for: Normal Color, Warm, Dry (right breast: packed, no erythema) Cardiovascular/Chest: Positive for: Regular Rate, Rhythm Respiratory: Positive for: Normal Breath Sounds. Negative for: Respiratory Distress Neurologic/Psych: Positive for: Alert, Oriented (3x) - ECG O2 Sat by Pulse Oximetry: 100 (RA) Pulse Ox Interpretation: Normal Medical Decision Making Medical Decision Makin:25 Initial impression: 31 year old female status post incision and drainage wound check. Plan: Discussed case with Dr. Montoya who is asking for the patient to go to her office right after d/c from ED (office located [address] [place] [address]). 14:40 Patient is in fair condition and will be discharged with instructions to follow up with Dr. Montoya upon discharge from ED. There is agreement to discharge plan. Scribe Attestation: Documented by Chapis Covington, acting as a scribe for Harley Rivas PA-C. Provider Scribe Attestation: All medical record entries made by the Scribe were at my direction and personally dictated by me. I have reviewed the chart and agree that the record accurately reflects my personal performance of the history, physical exam, medical decision making, and the department course for this patient. I have also personally directed, reviewed, and agree with the discharge instructions and disposition. Disposition - Clinical Impression Clinical Impression: Encounter for wound re-check - Disposition Referrals: Racquel Montoya MD [Staff Provider] - Disposition Time: 14:40 Condition: FAIR Instructions: Breast Abscess Drainage (DC) Print Language: KAZAKH
== END 2016-12-11 14:49 | disposition home or self-care (01) ==
LOC: H.ER 13:14
DX: Z48.00 Encounter for change or removal of nonsurgical wound dressing (principal)

== ENCOUNTER 2018-02-01 11:21 | Emergency (ER) | payer OTHER, SELFPAY ==
[2018-02-01 11:21] VITALS: BMI 19.5
[2018-02-01 11:41] VITALS: TEMP 99; O2SAT 100
[2018-02-01] MEDS ORDERED: Sodium Chloride 0.9% 1,000 ML IV STA (12:04)
[2018-02-01 12:21] LABS: BASO % 0.4 % (0.0-2.0); EOS # 0.2 K/uL (0.0-0.7); EOS % 6.4 % (0.0-4.0); HEMOGLOBIN 11.4 g/dL (12.0-16.0); LYMPH # 1.4 K/uL (1.0-4.3); LYMPH % 35.8 % (20.0-40.0); MEAN CELL VOLUME 89.7 fl (81.0-99.0); MEAN CORPUSCULAR HEMOGLOBIN 29.5 pg (27.0-31.0); MEAN CORPUSCULAR HGB CONC 32.9 g/dL (33.0-37.0); MEAN PLATELET VOLUME 9.3 fl (7.2-11.7); MONO # 0.5 K/uL (0.0-0.8); MONO % 11.9 % (0.0-10.0); NEUT # 1.8 K/uL (1.8-7.0); NEUT % 45.5 % (50.0-75.0); RBC 3.88 Mil/uL (3.80-5.20); RED CELL DISTRIBUTION WIDTH 13.5 % (11.5-14.5); WHITE BLOOD COUNT 3.9 K/uL (4.8-10.8)
--- NOTE | 2018-02-01 12:21 | ED PDOC ---
HPI: General Adult Time Seen by Provider: 02/01/18 11:48 Chief Complaint (Nursing): Headache Chief Complaint (Provider): headache, dizzy, rash History Per: Patient, Recycling Coordinator (Debbie) History/Exam Limitations: no limitations Current Symptoms Are (Timing): Still Present Additional Complaint(s): 32yo female c/o headache and dizziness ongoing about 5 days, associated w fatigue, now today develped diffuse rash to entire body, non-pruritic, non petechial, non urticarial, no prior history of similar. Denies neck pain, photophobia or sore throat. Denies abdominal pain. +nausea but no vomiting or diarrhea. LMP current. Taking meclizine left over from approx 2 years ago when she had episode of dizziness. Past Medical History Reviewed: Historical Data, Nursing Documentation, Vital Signs Vital Signs: Last Vital Signs Temp 99 F 02/01/18 11:37 Pulse 75 02/01/18 17:32 Resp 16 02/01/18 17:32 BP 125/80 02/01/18 17:32 Pulse Ox 100 02/01/18 17:32 - Medical History PMH: No Chronic Diseases Denies: HIV, Chronic Kidney Disease - Surgical History Surgical History: No Surg Hx - Family History Family History: States: Unknown Family Hx - Social History Current smoker - smoking cessation education provided: No - Home Medications Home Medications: Ambulatory Orders Medication Instructions Recorded Ciprofloxacin [Cipro] 500 mg PO Q12H 10 Days #20 tab 06/06/17 Naproxen [Naprosyn] 500 mg PO BID PRN #14 tablet 02/01/18 - Allergies Allergies/Adverse Reactions: Allergies Allergy/AdvReac Type Severity Reaction Status Date / Time clindamycin Allergy RASH Verified 02/01/18 11:35 Review of Systems ROS Statement: Except As Marked, All Systems Reviewed And Found Negative Constitutional: Negative for: Fever ENT: Negative for: Ear Pain, Nose Discharge, Throat Pain Cardiovascular: Negative for: Chest Pain, Palpitations Respiratory: Negative for: Cough, Shortness of Breath Gastrointestinal: Positive for: Nausea. Negative for: Vomiting, Diarrhea Genitourinary Female: Negative for: Dysuria Musculoskeletal: Negative for: Neck Pain Skin: Positive for: Rash. Negative for: Lesions, Jaundice, Bruising Neurological: Positive for: Headache, Dizziness. Negative for: Weakness Psych: Negative for: Depression Physical Exam - Reviewed Nursing Documentation Reviewed: Yes Vital Signs Reviewed: Yes - Physical Exam Appears: Positive for: Well, Non-toxic, No Acute Distress Head Exam: Positive for: ATRAUMATIC, NORMAL INSPECTION, NORMOCEPHALIC Skin: Positive for: Warm, Rash (diffuse lacy erythematous early morbilliform rash to extremities and trunk, spares face, no palms or soles, nontender, no induration) Eye Exam: Positive for: EOMI, Normal appearance, PERRL ENT: Positive for: Normal ENT Inspection Neck: Positive for: Normal, Painless ROM Cardiovascular/Chest: Positive for: Regular Rate, Rhythm Respiratory: Positive for: CNT, Normal Breath Sounds Gastrointestinal/Abdominal: Positive for: Soft. Negative for: Tenderness, Guarding Back: Positive for: Normal Inspection, Other (rash as above) Extremity: Positive for: Normal ROM, Other (rash as above). Negative for: Tenderness, Deformity Neurologic/Psych: Positive for: Alert, Oriented. Negative for: Motor/Sensory Deficits - Laboratory Results Result Diagrams: 02/01/18 12:13 02/01/18 12:13 - ECG O2 Sat by Pulse Oximetry: 100 Medical Decision Making Medical Decision Making: workup for headache with rash initiated bloodwork, CT, r/o strep, other bacterial infectious etiologies toradol ordered and IVF ordered labs reviewed mild leukopenia unclear etiology of symptoms now rash serology for lyme and mono sent, RPR, d/w resident tawanna and arranged for followup w clinic on sunday for results Rx naprosyn indications for return discussed in amharic Disposition - Clinical Impression Clinical Impression: Rash, Headache Counseled Patient/Family Regarding: Studies Performed, Diagnosis, Need For Followup, Rx Given - Disposition Referrals: [facility] [Outside] Disposition Time: 16:45 Condition: STABLE Additional Instructions: Followup with clinic for results of other blood tests in 2-3 days. Return to ER for any fever, weakness, new or worsening symptoms. Take medication as needed and directed for symptoms. Prescriptions: Naproxen [Naprosyn] 500 mg PO BID PRN #14 tablet PRN Reason: Pain, Moderate (4-7) Instructions: Headache, Adult, Skin Rash (DC) Forms: [employer] (Hungarian) Print Language: POLISH
[2018-02-01 12:26] LABS: SQUAMOUS EPITHIAL 3 /hpf (0-5); URINE BILIRUBIN NEGATIVE (NEGATIVE); URINE BLOOD MODERATE (NEGATIVE); URINE CLARITY CLEAR (Clear); URINE COLOR YELLOW (YELLOW); URINE GLUCOSE (UA) NEG (Normal); URINE LEUKOCYTE ESTERASE NEG Leu/uL (Negative); URINE PROTEIN NEGATIVE (NEGATIVE); URINE UROBILINOGEN 0.2-1.0 mg/dL (0.2-1.0)
[2018-02-01 12:44] LABS: ALB/GLOB RATIO 1.3 (1.0-2.1); ALBUMIN 4.1 g/dL (3.5-5.0); ALT/SGPT 61 U/L (9-52); AST/SGOT 47 U/L (14-36); BLOOD UREA NITROGEN 11 mg/dl (7-17); CALCIUM 8.3 mg/dL (8.4-10.2); GFR AFRICAN-AMERICAN > 60; GFR NON-AFRICAN AMERICAN > 60
--- NOTE | 2018-02-01 12:59 | CT ---
PROCEDURE: CT HEAD WITHOUT CONTRAST. HISTORY: headache dizziness COMPARISON: None available. TECHNIQUE: Axial computed tomography images were obtained through the head/brain without intravenous contrast. Radiation dose: Total exam DLP = 637.9 mGy-cm. This CT exam was performed using one or more of the following dose reduction techniques: Automated exposure control, adjustment of the mA and/or kV according to patient size, and/or use of iterative reconstruction technique. FINDINGS: HEMORRHAGE: No intracranial hemorrhage. BRAIN: No mass effect or edema. No atrophy or chronic microvascular ischemic changes. VENTRICLES: Unremarkable. No hydrocephalus. CALVARIUM: Unremarkable. PARANASAL SINUSES: Unremarkable as visualized. No significant inflammatory changes. MASTOID AIR CELLS: Unremarkable as visualized. No inflammatory changes. OTHER FINDINGS: None. IMPRESSION: No acute intracranial pathology.
[2018-02-01 17:33] VITALS: BP 125/80; PULSE 75; RESP 16
--- NOTE | 2018-02-04 10:51 | CARD ---
APPROVED REPORT EKG Measurement Heart [id number] <Conclusion> Normal sinus rhythm Left axis deviation Abnormal ECG
== END 2018-02-01 17:33 | disposition home or self-care (01) ==
LOC: H.ER 11:21
DX: R21 Rash and other nonspecific skin eruption (principal); R51 Headache
CPT/HCPCS: 70450; 80053; 81003; 81025; 85025; 86592; 86617; 86664; 86665; 87070; 87430; 96360; 96374; 99283; J1885; J7030